=== PATIENT | male | born 1990 | race American Indian/Alaskan Native ===

== ENCOUNTER 2024-02-19 16:22 | Emergency (ER) | payer BC, SELFPAY ==
[2024-02-19 16:42] VITALS: BP 144/81; PULSE 80; RESP 18; TEMP 36.9; O2SAT 98
[2024-02-19 16:43] VITALS: BP 144/81; PULSE 80; RESP 18; TEMP 36.9; O2SAT 98
--- NOTE | 2024-02-19 16:53 | ED.GENADULT ---
HPI - General Adult General Chief complaint: Recheck/Abnormal Lab/Rx Stated complaint: elevated blood pressure Time Seen by Provider: 02/19/24 16:53 Source: patient Mode of arrival: ambulatory Limitations: no limitations History of Present Illness HPI narrative: 33-year-old male presents with complaint of elevated blood pressure. Asymptomatic. Patient reports that he was at his dentist's office for a dental cleaning and blood pressure was elevated. Remember systolic was 180s. States they let him relax and room and checked several times and still elevated. Patient currently does not have a primary care physician. All systems reviewed and negative except as noted above. Related Data Home Medications Medication Instructions Recorded Confirmed No Home Medications 02/19/24 02/19/24 Allergies Allergy/AdvReac Type Severity Reaction Status Date / Time No Known Allergies Allergy Verified 02/19/24 16:43 Review of Systems Review of Systems: CONSTITUTIONAL: Denies fever, chills, or sweats. EYES: Denies visual changes, redness, or discharge. ENT: Denies rhinorrhea, congestion, sore throat, or otalgia. CARDIOVASCULAR: Denies chest pain, palpitations, or edema. RESPIRATORY: Denies cough or dyspnea. GASTROINTESTINAL: Denies abdominal pain, nausea, vomiting, or diarrhea. GENITOURINARY: Denies dysuria or hematuria. SKIN: Denies rash or itching. MUSCULOSKELETAL: Denies back pain, joint pain, or myalgia. NEUROLOGIC: Denies headache, numbness, or weakness. PSYCHIATRIC: Denies anxiety or depression. All other systems reviewed are negative, except as documented in HPI. PMFSH Comments At time of signature, agree with nursing past medical, surgical, social and family history. There is no relevant family history pertinent to the presenting complaint. Exam Narrative: GENERAL: This is a well-nourished, well-developed patient, in no apparent distress. HEAD: normocephalic, atraumatic. EYES: PERRL. Sclera clear/white. Vision is grossly intact. EARS: External ears normal NOSE: External nose normal NECK: Neck supple, non-tender without lymphadenopathy, masses or thyromegaly. CARDIOVASCULAR: Regular rate and rhythm without murmurs, gallops, or rubs. RESPIRATORY: Clear to auscultation. Breath sounds equal bilaterally. No wheezes, rales, or rhonchi. SKIN: warm, Dry, intact with no suspicious lesions or rash, good texture and turgor. NEURO: awake, alert, and oriented to person, place and time. There were no obvious focal neurologic abnormalities. EXTREMITIES: No joint tenderness, effusion, or edema noted. Course Course Level of Care: Express Care Visit Vital Signs Vital signs: Vital Signs Temperature 36.9 C 02/19/24 16:42 Pulse Rate 80 02/19/24 16:42 Respiratory Rate 18 02/19/24 16:42 Blood Pressure 144/81 H 02/19/24 16:42 Pulse Oximetry 98 02/19/24 16:42 Oxygen Delivery Room Air 02/19/24 16:42 Temperature 36.9 C 02/19/24 16:43 Pulse Rate 80 02/19/24 16:43 Respiratory Rate 18 02/19/24 16:43 Blood Pressure 144/81 H 02/19/24 16:43 Pulse Oximetry 98 02/19/24 16:43 Oxygen Delivery Room Air 02/19/24 16:43 BP 142/94 manually checked. Medical Decision Making MDM Narrative Medical decision making narrative: Patient is asymptomatic. Came to urgent care after visit at dentist's office to have blood pressure recheck. Blood pressure at dental office was 180s systolic. Referred patient to primary care physician to recheck blood pressure in 1 week. We discussed lifestyle changes. Patient is aware of diagnosis, understands and agrees to treatment plan. Anticipatory guidance given. Patient agrees to follow-up as directed and is aware of reasons to seek care at the emergency department. Portions of this record may have been created with voice recognition software Vital Signs Vital Signs: Vital Signs Temperature 36.9 C 02/19/24 16:42 Pulse Rate 80
== END 2024-02-19 17:13 | disposition home or self-care (01) ==
PROVIDERS: Emergency Provider Nurse Practitioner Family
DX: R03.0 Elevated blood-pressure reading, without diagnosis of hypertension (principal)
CPT/HCPCS: 99202; G0463

== ENCOUNTER 2024-05-25 08:02 | Outpatient (CLI) | payer BC, SELFPAY ==
[2024-05-25 08:15] LABS: Hematocrit 39.8 % (42.0-52.0); Hemoglobin 13.5 g/dL (14.0-18.0); Mean Corpuscular HGB Conc 33.9 g/dl (32-36); Mean Corpuscular Hemoglobin 32.5 pg (26-34); Mean Corpuscular Volume 95.7 fl (80-100); Mean Platelet Volume 10.7 fl (7.4-10.4); Platelet Count Result 175 k/mm3 (150-375); Red Blood Count 4.16 M/mm3 (4.6-6.20); Red Cell Distribution Width 11.9 % (11.5-14.5); White Blood Count 6.5 K/mm3 (4.5-10.0)
[2024-05-25 08:56] LABS: Alanine Aminotransferase 24 U/L (6-50); Albumin Level 4.5 g/dL (3.5-5.1); Alkaline Phosphatase 68 U/L (38-126); Anion Gap 7 mmol/L (4-12); Aspartate Amino Transferase 32 U/L (17-59); Bilirubin,Total 0.5 mg/dL (0.2-1.3); Blood Urea Nitrogen 12 mg/dL (9-20); Calcium 9.3 mg/dL (8.4-10.2); Carbon Dioxide 25 mmol/L (22-30); Chloride 107 mmol/L (98-107); Cholesterol 160 mg/dL (0-200); Estimated Glomerular Filt Rate > 60; Glucose 90 mg/dL (65-110); HDL Direct 38 mg/dL; Sodium 139 mmol/L (137-145); Triglycerides 88 mg/dL (<150)
[2024-05-25 09:01] LABS: Hemoglobin A1C 4.4 % (<5.7)
[2024-05-25 09:07] LABS: LDL Cholesterol Direct 104 mg/dL
== END 2024-05-25 08:03 | disposition home or self-care (01) ==
LOC: ANHLAB 08:03
PROVIDERS: PCP Family Medicine; Visit Provider Family Medicine
DX: Z00.00 Encounter for general adult medical examination without abnormal findings (principal); E66.9 Obesity, unspecified
CPT/HCPCS: 36415; 80053; 80061; 83036; 85027

== ENCOUNTER 2024-07-04 07:08 | Outpatient (CLI) | payer BC, SELFPAY ==
[2024-07-04 08:00] LABS: Hematocrit 40.1 % (42.0-52.0); Hemoglobin 13.3 g/dL (14.0-18.0); Mean Corpuscular HGB Conc 33.2 g/dl (32-36); Mean Corpuscular Hemoglobin 32.4 pg (26-34); Mean Corpuscular Volume 97.6 fl (80-100); Mean Platelet Volume 11.4 fl (7.4-10.4); Platelet Count Result 167 k/mm3 (150-375); Red Blood Count 4.11 M/mm3 (4.6-6.20); Red Cell Distribution Width 11.9 % (11.5-14.5); White Blood Count 5.3 K/mm3 (4.5-10.0)
[2024-07-04 08:14] LABS: Iron 77 ug/dL (49-181)
[2024-07-04 08:23] LABS: Percent Iron Saturation 29 % (20-50)
== END 2024-07-04 07:09 | disposition home or self-care (01) ==
PROVIDERS: PCP Family Medicine; Visit Provider Family Medicine
DX: D64.9 Anemia, unspecified (principal)
CPT/HCPCS: 36415; 82607; 83540; 83550; 85027

== ENCOUNTER 2024-11-16 07:24 | Outpatient (CLI) | payer BC, SELFPAY ==
[2024-11-16 07:40] LABS: Basophils Absolute Auto 0.1 K/mm3 (0.0-0.1); Basophils Percent Auto 1.3 % (0.2-1.2); Eosinophils Absolute Auto 0.5 K/mm3 (0-0.3); Eosinophils Percent Auto 8.5 % (0-4.4); Hematocrit 40.8 % (42.0-52.0); Hemoglobin 13.8 g/dL (14.0-18.0); Immature Granulocyte Absolute 0.07 K/mm3 (0.00-0.031); Immature Granulocyte Percent A 1.1 % (0-0.5); Lymphocytes Absolute Auto 1.88 K/mm3 (0.9-3.2); Lymphocytes Percent Auto 29.5 % (18.3-44.2); Mean Corpuscular HGB Conc 33.8 g/dl (32-36); Mean Corpuscular Hemoglobin 32.7 pg (26-34); Mean Corpuscular Volume 96.7 fl (80-100); Mean Platelet Volume 10.6 fl (7.4-10.4); Monocytes Absolute Auto 0.6 K/mm3 (0.1-0.6); Neutrophils Absolute Auto 3.2 K/mm3 (1.3-6.7); Neutrophils Percent Auto 49.6 % (45.5-73.1); Platelet Count Result 174 k/mm3 (150-375); Red Blood Count 4.22 M/mm3 (4.6-6.20); Red Cell Distribution Width 11.6 % (11.5-14.5); White Blood Count 6.4 K/mm3 (4.5-10.0)
[2024-11-16 07:48] LABS: Alanine Aminotransferase 21 U/L (6-50); Albumin Level 4.3 g/dL (3.5-5.1); Alkaline Phosphatase 70 U/L (38-126); Anion Gap 3 mmol/L (4-12); Aspartate Amino Transferase 32 U/L (17-59); Bilirubin,Total 0.4 mg/dL (0.2-1.3); Blood Urea Nitrogen 10 mg/dL (9-20); Calcium 9.4 mg/dL (8.4-10.2); Carbon Dioxide 28 mmol/L (22-30); Chloride 107 mmol/L (98-107); Estimated Glomerular Filt Rate > 60; Glucose 92 mg/dL (65-110); Potassium 4.3 mmol/L (3.4-5.0); Sodium 138 mmol/L (137-145)
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
--- OUTSIDE RECORDS SUMMARY | 2024-11-23 03:49 | XMS_ITS | Encounter Summary ---
Author Organization [facility] Address [address] [place] [address]. [place], [place] [id number] [place] [address] Care Team Providers Care Twisting Press Operator Name Role Phone Unavailable Primary Care Provider Unavailabl e Encounter Details Date Type Department Care Team (Late Contact Info) Description 12/14/2017 Orders Only [facility] [address] [place], [place] [id number] Adela Suarez MD [address] [place], [place] [id number] Social History Tobacco Use Types Packs/Day Years Used Date Smoking Tobacco: Never Smokeless Tobacco: Never Alcohol Use Standard Drinks/Week Comments Yes 0 (1 standard drink = 0.6 oz pur e alcohol) sociallly Sex and Gender Information Value Date Recorded Sex Assigned at Not on file Legal Sex Male 10:18 AM ARMATURE REWINDER Gender Identity Not on file Sexual Orientation Not on file documented as of this encounter Plan of Treatment Upcoming Encounters Date Type Department Care Team (Late Contact Info) Description 05/22/2025 3:20 PM CDT Office Visit [facility] Family & Internal Medicine [facility] [id number] [place] [phone] Marilyn Stevens MD [address] [place] [address]. [address] [place] [address] documented as of this encounter Procedures Procedure Name Priority Date/Time Associated Diagnosis Comments PATHOLOGY Routine 12/14/2017 12:00 AM ARMATURE REWINDER documented in this encounter Results * Pathology (12/14/2017 12:00 AM ARMATURE REWINDER) COPATH REPORT ? [facility] ? Department of Pathology ? [address] [facility] [address] ? [place] ??[id number] ? [id number] ? Pathology Report ? Name: MARV CARRIZALES ? Specimen #: [id number] Age: 12 1990 (Age: 27) ?Location: [facility] Sex: M ? Procedure Date: 12/14/2017 Hospital #: [id number] ? Date Received: 12/14/2017 Date Reported: 12/15/2017 Provider: ADELA SUAREZ Gross Description: The specimen is received in formalin (placed in formalin at 08:50) labeled with the patient's name (Marv Carrizales), date, and bilateral tonsils (stitch on right). The specimen consists of two tonsils, the right marked with a suture per the accompanying path requisition and specimen container. The right tonsil weighs 6.0 gm and measures 3.3 x 2.4 x 1.6 cm. ??The mucosal surface has a glistening, cerebriform, pink-luke appearance. The margin is inked. ??Cut sections have a convoluted, lockhart-pink appearance. The left tonsil weighs 6.0 gm and measures 3.2 x 2.5 x 1.2 cm. The mucosal surface has a dull, luke-pink cerebriform appearance, and has a minimal amount of hemorrhage noted in the crypts. Cut sections are convoluted, lockhart-red and unremarkable. Triage Registered Nurse sections are submitted as follows: 1 - right tonsil 2 - left tonsil Microscopic Description: Microscopic examination substantiates the above captioned diagnosis. FINAL PATHOLOGIC DIAGNOSIS: TONSILS, RIGHT AND LEFT, TONSILLECTOMY: ? - ? FOLLICULAR LYMPHOID HYPERPLASIA ? - ? ACUTE CRYPTITIS ? - ? ACTINOMYCES COLONIES IDENTIFIED ? - ? NO EVIDENCE OF MALIGNANCY ? FREDDY SCHUSTER ??Pathologist /12/15/2017 Electronically Signed Out ? [facility] 12/14/2017 12/14/2017 11: 02 AM ARMATURE REWINDER Comment:TONSIL, BILATERAL us Adela Suarez MD PATHOLOGY/CYTOLOGY ORDERABLES Final Result [facility] [address] [facility] [place] [address], documented in this encounter Visit Diagnoses Not on filedocumented in this encounter
--- OUTSIDE RECORDS SUMMARY | 2024-11-23 03:49 | XMS_ITS | Encounter Summary ---
Author Organization [facility] Address [address] [place] [address]. [place], [place] [id number] [place] [id number] Care Team Providers Care Manager Fire Name Role Phone Unavailable Primary Care Provider Unavailabl e Encounter Details Date Type Department Care Team (Latest Contact Info) Description 12/14/2017 6:49 AM SOLAR PROJECT COORDINATION SPECIALIST - 12/14/2017 1:25 PM SOLAR PROJECT COORDINATION SPECIALIST Hospital Encounter [facility] [place], [place] [id number] Adela Suarez MD [address] [place] [address] Discharge Disposition: Home or Self Care (Routine Discharge) Social History Tobacco Use Types Packs/Day Years Used Date Smoking Tobacco: Never Smokeless Tobacco: Never Alcohol Use Standard Drinks/Week Comments Yes 0 (1 standard drink = 0.6 oz pur e alcohol) sociallly Sex and Gender Information Value Date Recorded Sex Assigned at Not on file Legal Sex Male 10:18 AM SOLAR PROJECT COORDINATION SPECIALIST Gender Identity Not on file Sexual Orientation Not on file documented as of this encounter Last Filed Vital Signs Vital Sign Reading Time Taken Comments Blood Pressure 139/97 12/14/2017 1:20 PM SOLAR PROJECT COORDINATION SPECIALIST Pulse 102 12/14/2017 1:20 PM SOLAR PROJECT COORDINATION SPECIALIST Temperature 36.8 ??C (98.2 ??F) 12/14/2017 1:20 PM CS T Respiratory Rate 20 12/14/2017 1:20 PM SOLAR PROJECT COORDINATION SPECIALIST Oxygen Saturation 92% 12/14/2017 1:20 PM SOLAR PROJECT COORDINATION SPECIALIST 92-93% RA Inhaled Oxygen Concentration - - Weight 159.7 kg (352 lb 1.2 oz) 12/14/2017 7:20 AM SOLAR PROJECT COORDINATION SPECIALIST Height 185.4 cm (6' 1 ) 12/14/2017 7:20 AM SOLAR PROJECT COORDINATION SPECIALIST Body Mass Index 46.45 12/14/2017 7:20 AM SOLAR PROJECT COORDINATION SPECIALIST documented in this encounter Discharge Instructions * Discharge Instructions* Dejah Harris RN - 12/14/2017 11:36 AM SOLAR PROJECT COORDINATION SPECIALIST Tonsillectomy Diet for 2 weeks.. Soft diet. No vigorous activity for 2 weeks NO DRIVING FOR 24 HRS NO ALCOHOL, NO OPERATING MACHINERY, NO MAJOR DECISIONS FOR 24 HOURS TAKE PAIN MEDS WITH FOOD USE STOOL SOFTENER WHILE ON NARCOTICS AVOID GREASY, FRIED OR SPICY FOODS MUST HAVE A RESPONSIBLE ADULT STAY WITH YOU FOR THE REST OF TODAY AND TONIGHT IF YOU HAVE ANY EMERGENT CONDITIONS SUCH SHORTNESS OF BREATH OR CHEST PAIN CALL 911 [facility] SUAREZ EXCHANGE # NO SHARP FOODS SUCH CHIPS/CORN FLAKES EAT COOL, SOFT FOODS SUCH SHERBET, POPCICLES, SOUPS, MASHED POTATOES, RICE, JELLO AND PUDDINGS NO STRAWS WATCH FOR BLEEDING R PROJECT COORDINATION SPECIALIST * Attachments The following attachments cannot be sent through Care Everywhere. * TONSILLECTOMY DISCHARGE INSTRUCTIONS (WOLOF) documented in this encounter Medications at Time of Discharge hydrocodone-aceta minophen 7.5-325 MG/15ML Solution solution Take 15 mLs by mouth every 4 (four) hours as needed for Pain. 500 mL 12/14/2017 amoxicillin 250 MG/5ML suspension Take 10 mLs (500 mg total) by mouth 3 (three) times daily for 5 days. 150 mL 12/14/2017 12/19/2017 documented as of this encounter H&P Notes * Adela Suarez MD - 12/14/2017 7:15 AM CST HISTORY AND PHYSICAL INTERVAL NOTE: I have reviewed Sangita Carrizales History & Physical which was performed within the past 30 days. After examining Sangita Carrizales, no change has occurred in the patient's condition since the H&P was completed. Informed Consent Discussion: Risks, benefits, alternatives as well as the consequences of not performing the surgery/procedure were discussed with the patient and/or family/personal senior patient account representative. Questions were answered and the patient/family/personal senior patient account representative verbalized understanding and desires to proceed. R PROJECT COORDINATION SPECIALIST Source Note - Adela Suarez MD - 12/12/2017 8:44 AM SOLAR PROJECT COORDINATION SPECIALIST Current / Administered Medications - Reviewed LN Allergies - Reviewed LN Pharmacies: None Selected No Known Medications No Known Allergies Problem List - Reviewed LN Medical History - Reviewed LN No Known Problem List Leg Cramps Previous Diagnosis - last 3 visits No Previous Visits Family Medical History - Reviewed LN Social History - Reviewed LN High Blood Pressure Ear Infections Headaches Allergies Hearing Loss Breast Cancer Diabetes Migraine Heart Attack Around Smoke: Not around smoke Alcohol: Drinks Alcohol Illegal Drug Use: No illegal drug use Diet: Eats Snacks Smoking Status: Never smoker Exercise: Doesn't Exercise Caffeine Intake: Drinks Caffeine Occupation: No Occupation Subjective This is a patient with a history constant difficulty breathing through the nose. He has dysphagia of more solid food and a sense of fullness in the throat. His voice has been muffled as if he has marbles in the throat for many years and getting progressively worse. When he has an upper respiratory illness, he gets the sense of airway obstruction. In addition, he has snoring, restless sleep,non-refreshing sleep. Chief Complaint Patient is here today for a sleep consult. Quality:: pt here today for a sleep consult Timing (Onset):: months Location:: head Duration:: constant Associated Signs and Symptoms:: snoring, fatigue Severity:: 5/10 Modifying Factors:: none Context:: none Review of Systems Ears: The System was normal Sleep: Quits Breathing, No Nightmares, Patient noted Snoring, No Insomnia, No daytime fatigue. Mouth/Throat: The System was normal Lymphatic: The System was normal Neck: The System was normal Allergy/Immune System: The System was normal Nose: The System was normal Cardiovascular/Heart: The System was normal Eyes: The System was normal Respiratory/Lung Disease: The System was normal GI/Stomach: The System was normal General/Constitutional: The System was normal Endocrine: The System was normal Psychiatric: The System was normal Neurological: The System was normal Kidney/Urological: The System was normal Skin: The System was normal Musculoskeletal: No Pain, No Muscle Aches, No Stiffness, No Joint Aches, No restless legs. Leg cramps. Heart: RRR Objective Physical Exam General Appearance: The patient appears active and healthy with no apparent physical problems. Patient appears well developed, well oriented, and well nourished. obese Communication: hot potato voice Face and Head: Normocephalic, atraumatic. No rashes or lesions. Eyes intact. Pupils are equal, round, and reactive to light. Clear sclera. Normal external ear appearance. Normal conchae appearance. External Nasal Appearance: Dorsum straight and symmetrical. No polyps or lesions. Healthy pink mucosa. Turbinates display abnormalities. Minimal, clear discharge. Septum midline. Valves / nares are open. Palpation of Sinuses: No tenderness noted. Lips and Teeth: No lesions or caries. No tenderness noted. Good dentition. Oral Cavity: Oral cavity normal, pink mucous membranes. Tongue is without lesions. Floor of mouth is without lesions. 4+ tonsils meeting in midline Oropharynx: Oropharynx clear. Salivary Glands: No tenderness or masses. Neck: Neck is supple without masses. No palpable neck nodes or thyroid masses. Neurological: No tremors noted. Normal strength and gait. Cranial nerves intact, symmetrical. Orders [id number] - Fiberoptic Laryngoscopy, 1 unit(s), Results: Using a 50-50 solution of lidocaine and neosynephrine nebulized topically into the nose, I performed a fiberoptic flexible nasolaryngoscopy. A thorough examination of the nasal cavity, nasopharynx, oropharynx , hypopharynx, base of tongue and larynx was performed. Findings: Base of Tongue: normal Hypopharynx: tonsils touch in the midline. Larynx: normal. Adenoids 3+ Assessment Diagnosis J35.3 Hypertrophy of tonsils with hypertrophy of adenoids R06.83 Snoring R13.10 Dysphagia, unspecified Plan This patient has 4+ tonsillar hypertrophy with the tonsils touching in the midline at rest without an infection. He also has adenoid hypertrophy. These are causing near total nasal obstruction, hot potato voice, dysphagia of solid foods and the sense of airway obstruction with upper respiratory illnesses and even some with sleep. I have recommended tonsillectomy and adenoidectomy given the massive size of the tonsils and his persistent symptoms. The risks and benefits including bleeding, infection, velopharyngeal insufficiency, nasopharyngeal stenosis, dental injury, numbness of the tongue and oral cavity, need for subsequent surgical intervention and control of hemorrhage, dehydration, poss ible need for IV therapy, anesthetic complications, and all of the potential complications were discussed with the patient and family. R PROJECT COORDINATION SPECIALIST * Adela Suarez MD - 12/12/2017 8:44 AM CST Current / Administered Medications - Reviewed LN Allergies - Reviewed LN Pharmacies: None Selected No Known Medications No Known Allergies Problem List - Reviewed LN Medical History - Reviewed LN No Known Problem List Leg Cramps Previous Diagnosis - last 3 visits No Previous Visits Family Medical History - Reviewed LN Social History - Reviewed LN High Blood Pressure Ear Infections Headaches Allergies Hearing Loss Breast Cancer Diabetes Migraine Heart Attack Around Smoke: Not around smoke Alcohol: Drinks Alcohol Illegal Drug Use: No illegal drug use Diet: Eats Snacks Smoking Status: Never smoker Exercise: Doesn't Exercise Caffeine Intake: Drinks Caffeine Occupation: No Occupation Subjective This is a patient with a history constant difficulty breathing through the nose. He has dysphagia of more solid food and a sense of fullness in the throat. His voice has been muffled as if he has marbles in the throat for many years and getting progressively worse. When he has an upper respiratory illness, he gets the sense of airway obstruction. In addition, he has snoring, restless sleep,non-refreshing sleep. Chief Complaint Patient is here today for a sleep consult. Quality:: pt here today for a sleep consult Timing (Onset):: months Location:: head Duration:: constant Associated Signs and Symptoms:: snoring, fatigue Severity:: 5/10 Modifying Factors:: none Context:: none Review of Systems Ears: The System was normal Sleep: Quits Breathing, No Nightmares, Patient noted Snoring, No Insomnia, No daytime fatigue. Mouth/Throat: The System was normal Lymphatic: The System was normal Neck: The System was normal Allergy/Immune System: The System was normal Nose: The System was normal Cardiovascular/Heart: The System was normal Eyes: The System was normal Respiratory/Lung Disease: The System was normal GI/Stomach: The System was normal General/Constitutional: The System was normal Endocrine: The System was normal Psychiatric: The System was normal Neurological: The System was normal Kidney/Urological: The System was normal Skin: The System was normal Musculoskeletal: No Pain, No Muscle Aches, No Stiffness, No Joint Aches, No restless legs. Leg cramps. Heart: RRR Objective Physical Exam General Appearance: The patient appears active and healthy with no apparent physical problems. Patient appears well developed, well oriented, and well nourished. obese Communication: hot potato voice Face and Head: Normocephalic, atraumatic. No rashes or lesions. Eyes intact. Pupils are equal, round, and reactive to light. Clear sclera. Normal external ear appearance. Normal conchae appearance. External Nasal Appearance: Dorsum straight and symmetrical. No polyps or lesions. Healthy pink mucosa. Turbinates display abnormalities. Minimal, clear discharge. Septum midline. Valves / nares are open. Palpation of Sinuses: No tenderness noted. Lips and Teeth: No lesions or caries. No tenderness noted. Good dentition. Oral Cavity: Oral cavity normal, pink mucous membranes. Tongue is without lesions. Floor of mouth is without lesions. 4+ tonsils meeting in midline Oropharynx: Oropharynx clear. Salivary Glands: No tenderness or masses. Neck: Neck is supple without masses. No palpable neck nodes or thyroid masses. Neurological: No tremors noted. Normal strength and gait. Cranial nerves intact, symmetrical. Orders [id number] - Fiberoptic Laryngoscopy, 1 unit(s), Results: Using a 50-50 solution of lidocaine and neosynephrine nebulized topically into the nose, I performed a fiberoptic flexible nasolaryngoscopy. A thorough examination of the nasal cavity, nasopharynx, oropharynx , hypopharynx, base of tongue and larynx was performed. Findings: Base of Tongue: normal Hypopharynx: tonsils touch in the midline. Larynx: normal. Adenoids 3+ Assessment Diagnosis J35.3 Hypertrophy of tonsils with hypertrophy of adenoids R06.83 Snoring R13.10 Dysphagia, unspecified Plan This patient has 4+ tonsillar hypertrophy with the tonsils touching in the midline at rest without an infection. He also has adenoid hypertrophy. These are causing near total nasal obstruction, hot potato voice, dysphagia of solid foods and the sense of airway obstruction with upper respiratory illnesses and even some with sleep. I have recommended tonsillectomy and adenoidectomy given the massive size of the tonsils and his persistent symptoms. The risks and benefits including bleeding, infection, velopharyngeal insufficiency, nasopharyngeal stenosis, dental injury, numbness of the tongue and oral cavity, need for subsequent surgical intervention and control of hemorrhage, dehydration, poss ible need for IV therapy, anesthetic complications, and all of the potential complications were discussed with the patient and family. R PROJECT COORDINATION SPECIALIST documented in this encounter OR Notes * Op Note - Adela Suarez MD - 12/14/2017 9:01 AM CST Procedure Note Indications: The patient underwent surgery on 12/14/2017 for chronic tonsillitis and adenotonsillar hypertrophy. Procedure: Procedure(s): TONSILLECTOMY AND ADENOIDECTOMY BILATERAL Procedure Details The patient was taken to the operating room and placed under a general endotracheal anesthesia. Once under adequate depth of anesthetic, the patient was placed supine. The operating table was turned 90 degrees and then the patient was prepped and draped in the usual fashion for oropharyngeal surgery. A McIvor mouth gag was inserted and opened for visualization of the oropharynx. Examination foundno submucosal cleft, no bifid uvula and no unusual pulsation of the tonsil bed. The right tonsil was grasped with a curved allis and retracted medially. The Bovie on a setting of 15 W was used to make an anterior pillar incision and then dissect between the tonsil capsule and tonsil bed to remove th e right tonsil completely. Focal bleeding was controlled with focal use of the suction cautery. Once the right tonsil was removed, an identical procedure was used on the left. Both tonsils were placed in formalin and sent to pathology. A red rubber catheter was inserted in the nose and withdrawn through the mouth for elevation of the soft palate. The adenoids were examined with a laryngeal mirror. The adenoids were removed using suction cautery ablation. With the cautery on a setting of 40W, the adenoids were cauterized, liquefied and suctioned from the oropharynx. Care was taken to avoidinjuring the Eustachian tubes and to avoid burning deeper than the adenoid bed. The oropharynx was re-examined for bleeding. The mouth gag was released for 1 full minute and then removed. The patient was turned back to anesthesia, allowed to emerge from the anesthetic. Extubation was accomplished in the OR and the patient transferred to PACU without complication. Findings: 4+ tonsils. 4+ adenoids Complications: None Estimated Blood Loss: 20cc Specimens: ID Type Source Tests Collected by Time Destination A : Bilateral Tonsils (Stitch on right tonsil) TISSUE TONSIL, LEFT PATHOLOGY Adela Suarez MD 12/14/2017 0850 Disposition: PACU Condition: stable ADELA SUAREZ MD R PROJECT COORDINATION SPECIALIST * OR PreOp - Aundrea Hope NP - 12/07/2017 9:03 AM CST Chart reviewed. High MCKAYLA Risk. Denies cardiac history, denies SOB/CP R PROJECT COORDINATION SPECIALIST * OR PreOp - Denise Blackman RN - 12/06/2017 3:53 PM CST Patient can climb 2 flights of stairs without chest pain but may be sob. Exercise tolerance the same as it was 6 months ago. Denies heart testing pcp- none Cardio-none States he went to dr. suarez - thought he has sleep apnea- but dr wanted to remove adnoids and tonsils then will have sleep study done after R PROJECT COORDINATION SPECIALIST documented in this encounter Plan of Treatment Upcoming Encounters Date Type Department Care Team (Late st Contact Info) Description 05/22/2025 3:20 PM CDT Office Visit [facility] Family [facility] Internal Medicine - [address] [phone] Marilyn Stevens MD [address] [place] [address]. [address] [place] [address] documented as of this encounter Procedures Procedure Name Priority Date/Time Associated Diagnosis Comments TONSILLECTOMY AND ADENOIDECTOMY 12/14/2017 8:03 AM SOLAR PROJECT COORDINATION SPECIALIST HYPERTROPHY OF TONSILS AND ADENOIDS Case Notes BABITA BY FAX 1-3-18 ML *PHONE TEST* documented in this encounter Visit Diagnoses Not on filedocumented in this encounter Administered Medications Inactive Administered Medications - up to 3 most recent administrations Medication Order MAR Action Action Date Dose Rate Site hydrocodone-acetaminophen (HYCET) 7.5-325 MG/15ML solution 15 mL 15 mL, Oral, PRN, Moderate pain (Scale 4 - 7), 1 dose, Starting on Lanie 12/14/17 at 0926, Until Lanie 12/14/17 at 0955, Maximum dose of acetaminophen is 4000 mg from all sources in 24 hours., PACU Given 12/14/2017 9:55 AM SOLAR PROJECT COORDINATION SPECIALIST 15 mLs lactated ringers infusion at 10 mL/hr, Intravenous, Continuous, Starting on Lanie 12/14/17 at 0815, Until 12/16/17 at 1419 New Bag 12/14/2017 7:48 AM SOLAR PROJECT COORDINATION SPECIALIST 10 mL/hr Ot her lactated ringers infusion at 10 mL/hr, Intravenous, Continuous, Starting on Lanie 12/14/17 at 0845, Until 12/16/17 at 1419, Not to be given to patients with end stage renal disease or dialysis. Infuse at TKO rate, Pre-Op New Bag 12/14/2017 8:19 AM SOLAR PROJECT COORDINATION SPECIALIST documented in this encounter Active and Recently Administered Medications Times are shown in SOLAR PROJECT COORDINATION SPECIALIST. Continuous Medication Order 12/12/2017 12/13/2017 12/14/2017 lactated ringers infusion at 10 mL/hr, Intravenous, Continuous, Starting on Lanie 12/14/17 at 0815, Until 12/16/17 at 1419 0748 (New Bag - Prov ider: Deepali Franco RN)0841 (JAN Hold - Provider: User InsideView - Reason: Unreviewed Transfer Orders)0925 (JAN Unhold - Provider: User Epic) lactated ringers infusion at 10 mL/hr, Intravenous, Continuous, Starting on Lanie 12/14/17 at 0845, Until 12/16/17 at 1419, Not to be given to patients with end stage renal disease or dialysis. Infuse at TKO rate, Pre-Op 0819 (New Bag - Prov ider: Ankita Toro CRNA)0928 (Infusion Stop Time - Provider: Ankita Toro CRNA) lactated ringers infusion at 100 mL/hr, Intravenous, Continuous, Starting on Lanie 12/14/17 at 0945, Until 12/16/17 at 1419, PACU 0945 (Canceled Entry - Provider: Automatic Discharge Provider - Comment: Automatically canceled at discontinue of medication order) PRN Medication Order 12/12/2017 12/13/2017 12/14/2017 hydrocodone-acetaminophen (HYCET) 7.5-325 MG/15ML solution 10 mL 10 mL, Oral, Every 4 hours PRN, Moderate pain (Scale 4 - 7), Starting on Lanie 12/14/17 at 1130, Until 12/16/17 at 1419, Maximum dose of acetaminophen is 4000 mg from all sources in 24 hours., Post-Op hydrocodone-acetaminophen (HYCET) 7.5-325 MG/15ML solution 15 mL (COMPLETED) 15 mL, Oral, PRN, Moderate pain (Scale 4 - 7), 1 dose, Starting on Lanie 12/14/17 at 0926, Until Lanie 12/14/17 at 0955, Maximum dose of acetaminophen is 4000 mg from all sources in 24 hours., PACU 0955 (Given - Provid er: Whit Mcgowan RN) sodium chloride 0.9 % irrigation (CANCELED) Continuous PRN, Starting on Lanie 12/14/17 at 0913, Until Lanie 18 at 0923, Intra-Op 0913 (New Bag - Prov ider: Adela Suarez MD) documented in this encounter
--- OUTSIDE RECORDS SUMMARY | 2024-11-23 03:49 | XMS_ITS | Encounter Summary ---
Author Organization [facility] Address [address] [place] [address]. [place], [place] [address] [place] [address] Care Team Providers Care Food Service Attendant Name Role Phone Unavailable Primary Care Provider Unavailabl e Encounter Details Date Type Department Care Team (Late st Contact Info) Description 12/14/2017 8:40 AM CRYSTALIZER - 12/14/2017 9:52 AM CRYSTALIZER Surgery [facility] [place], [place] [address] Adela Suarez MD [address] [place], [place] [address] TONSILLECTOMY AND ADENOIDECTOMY BILATERAL Surgery Details Date/Time Status Location OR Service Patient Class Case Class Case Type Trauma Case? 12/14/2017 8:40 AM Posted [facility]ANCY OR OR 1 ENT Short Stay/Outpati ent Surgery E - Elective No Panel 1 Procedure LRB Anes Op Region Wound Class Comments TONSILLECTOMY AND ADENOIDECTOMY BILATERAL Bilateral General Throat Clean Contaminate d Surgeon Surgeon Role Service Panel Adela Suarez MD Primary ENT 1 Case Notes BABITA BY FAX 11-29-17 ML *PHONE TEST* documented in this encounter Social History Tobacco Use Types Packs/Day Years Used Date Smoking Tobacco: Never Smokeless Tobacco: Never Alcohol Use Standard Drinks/Week Comments Yes 0 (1 standard drink = 0.6 oz pur e alcohol) sociallly Sex and Gender Information Value Date Recorded Sex Assigned at Not on file Legal Sex Male 10:18 AM CRYSTALIZER Gender Identity Not on file Sexual Orientation Not on file documented as of this encounter Last Filed Vital Signs Vital Sign Reading Time Taken Comments Blood Pressure 139/97 12/14/2017 1:20 PM CRYSTALIZER Pulse 102 12/14/2017 1:20 PM CRYSTALIZER Temperature 36.8 ??C (98.2 ??F) 12/14/2017 1:20 PM CS T Respiratory Rate 20 12/14/2017 1:20 PM CRYSTALIZER Oxygen Saturation 92% 12/14/2017 1:20 PM CRYSTALIZER 92-93% RA Inhaled Oxygen Concentration - - Weight 159.7 kg (352 lb 1.2 oz) 12/14/2017 7:20 AM CRYSTALIZER Height 185.4 cm (6' 1 ) 12/14/2017 7:20 AM CRYSTALIZER Body Mass Index 46.45 12/14/2017 7:20 AM CRYSTALIZER documented in this encounter Discharge Instructions * Discharge Instructions* Dejah Harris RN - 12/14/2017 11:36 AM CRYSTALIZER Tonsillectomy Diet for 2 weeks.. Soft diet. [...] CHEST PAIN [facility] EX[facility]ANGE # NO SHARP FOODS SUCH CHIPS/CORN FLAKES EAT COOL, SOFT FOODS SUCH SHERBET, POPCICLES, SOUPS, MASHED POTATOES, RICE, JELLO AND PUDDINGS NO STRAWS WATCH FOR BLEEDING TALIZER * Attachments The following attachments cannot be sent through Care Everywhere. * TONSILLECTOMY DISCHARGE INSTRUCTIONS (PASHTO) documented in this encounter Medications at Time [...] were discussed with the patient and/or family/personal training representative. Questions were answered and the patient/family/personal training representative verbalized understanding and desires to proceed. TALIZER Source Note - Adela Suarez MD - 12/12/2017 8:44 AM CRYSTALIZER Current / Administered Medications - Reviewed LN [...] and gait. Cranial nerves intact, symmetrical. Orders [id number] - Fiberoptic Laryngoscopy, 1 unit(s), Results: Using [...] were discussed with the patient and family. TALIZER * Adela Suarez MD - 12/12/2017 8:44 [...] and gait. Cranial nerves intact, symmetrical. Orders [id number] - Fiberoptic Laryngoscopy, 1 unit(s), Results: Using [...] were discussed with the patient and family. TALIZER documented in this encounter OR Notes * [...] right tonsil) TISSUE TONSIL, LEFT PATHOLOGY Adela Saurez MD 12/14/2017 0850 Disposition: PACU Condition: stable ADELA SUAREZ MD TALIZER * OR PreOp - Aundrea Hope NP - 12/07/2017 9:03 AM CST Chart reviewed. High MCKAYLA Risk. Denies cardiac history, denies SOB/CP TALIZER * OR PreOp - Denise Blackman RN [...] then will have sleep study done after TALIZER documented in this encounter Plan of Treatment Upcoming Encounters Date Type Department Care Team (Late st Contact Info) Description 05/22/2025 3:20 PM CDT Office Visit [facility] Family & Internal Medicine - [address] [address] [place] [address] [facility]. [address] [place] [address] documented as of this encounter Procedures Procedure Name Priority Date/Time Associated Diagnosis Comments TONSILLECTOMY AND ADENOIDECTOMY 12/14/2017 8:03 AM CRYSTALIZER HYPERTROPHY OF TONSILS AND ADENOIDS Case Notes BABITA BY FAX 13-18 ML *PHONE TEST* documented in this encounter [...] 24 hours., PACU Given 12/14/2017 9:55 AM CRYSTALIZER 15 mLs lactated ringers infusion at 10 mL/hr, Intravenous, Continuous, Starting on Lanie 12/14/17 at 0815, Until 12/16/17 at 1419 New Bag 12/14/2017 7:48 AM CRYSTALIZER 10 mL/hr Other lactated ringers infusion at 10 mL/hr, Intravenous, Continuous, Starting on Lanie 12/14/17 at 0845, Until 12/16/17 at 1419, Not to be given to patients with end stage renal disease or dialysis. Infuse at TKO rate, Pre-Op New Bag 12/14/2017 8:19 AM CRYSTALIZER sodium chloride 0.9 % irrigation Continuous PRN, Starting on Lanie 12/14/17 at 0913, Until Lanie 12/14/17 at 0923, Intra-Op New Bag 12/14/2017 9:13 AM CRYSTALIZER 120 mLs Throat documented in this encounter Active and Recently Administered Medications Times are shown in CRYSTALIZER. Continuous Medication Order 12/12/2017 12/13/2017 12/14/2017 lactated ringers infusion at 10 mL/hr, Intravenous, Continuous, Starting on Lanie 12/14/17 at 0815, Until 12/16/17 at 1419 0748 (New Bag - Prov ider: Deepali Franco RN)0841 (JAN Hold - Provider: User Epic - Reason: Unreviewed Transfer Orders)0925 (JAN Unhold - Provider: User Epic) lactated ringers infusion at 10 mL/hr, Intravenous, Continuous, Starting on Lanie 18 at 0845, Until 12/16/17 at 1419, Not to be given to patients with end stage renal disease or dialysis. Infuse at TKO rate, Pre-Op 0819 (New Bag - Prov ider: Ankita Toro CRNA)0928 (Infusion Stop Time - Provider: Ankita Toro CRNA) lactated ringers infusion at 100 mL/hr, Intravenous, Continuous, Starting on Lanie 18 at 0945, Until 12/16/17 at 1419, PACU [...] - 7), 1 dose, Starting on Lanie 18 at 0926, Until Lanie 118 at 0955, Maximum dose of acetaminophen is 4000 mg from all sources in 24 hours., PACU 0955 (Given - Provid er: Whit Mcgowan RN) sodium chloride 0.9 % irrigation (CANCELED) Continuous PRN, Starting on Lanie 12/14/17 at 0913, Until Lanie 118 at 0923, Intra-Op 0913 (New Bag - Prov ider: Adela Suarez MD) documented in this encounter
--- OUTSIDE RECORDS SUMMARY | 2024-11-23 03:49 | XMS_ITS | Clinical Summary ---
Author Organization [facility] Address [address] [facility] [place] [address] Care Team Providers Care Telephoto Installer Name Role Phone Unavailable Primary Care Provider Unavailabl e Source Comments [facility], [facility],non-owned Affiliates and Associated Physician Practices is amultiple site organization consisting of ambulatory clinics and hospital sitesin [place], [place], [place] and [place]. This disclosure is being madepursuant to the Care Everywhere program and may not contain all information available regarding this patient. Last updated 18.[facility] Allergies No known active allergies Medications * Be aware that medications may not be up to date on this document. Alwaysverify current medications with the patient. Medication Sig Dispensed Refills Start Date End Date Status predniSONE (DELTASONE) 20 MG tabletIndications:Acut e sinusitis, recurrence not specified, unspecified location Take 1 tablet by mouth 2 times daily 14 tablet 12/25/2018 Active albuterol HFA (VENTOLIN HFA) 108 (90 BASE) MCG/ACT inhalerIndications:Bro nchitis Inhale 2 puffs by mouth every 6 hours as needed 1 Inhaler 5 12/25/2018 Active Family History Medical History Relation Name Comments Asthma Mother Cancer - Breast Mother Thyroid Disease Mother Autoimmune Disease Neg Hx Bipolar Disorder Neg Hx Cancer - Colon Neg Hx Cancer - Other Neg Hx Cancer - Ovarian Neg Hx Cancer - Pancreatic Neg Hx Cancer - Prostate Neg Hx Depression Neg Hx Eczema Neg Hx Hypertension Neg Hx Migraine Neg Hx Osteoporosis Neg Hx Seizures Neg Hx Sudd. <30 Neg Hx Ulcerative Colitis Neg Hx Relation Name Status Comments Mother Alive Social History Tobacco Use Types Packs/Day Years Used Date Smoking Tobacco: Never Smokeless Tobacco: Never Tobacco Cessation:Counseling Given: No Alcohol Use Standard Drinks/Week Comments No 0 (1 standard drink = 0.6 oz pur e alcohol) Sex and Gender Information Value Date Recorded Sex Assigned at Not on file Gender Identity Not on file Sexual Orientation Not on file Last Filed Vital Signs Vital Sign Reading Time Taken Comments Blood Pressure 124/80 12/25/2018 4:31 PM EXPENSE CLERK Pulse 88 12/25/2018 4:31 PM EXPENSE CLERK Temperature 36.5 ??C (97.7 ??F) 12/25/2018 4:31 PM CS T Respiratory Rate 20 12/25/2018 4:31 PM EXPENSE CLERK Oxygen Saturation 97% 12/25/2018 4:31 PM EXPENSE CLERK Inhaled Oxygen Concentration - - Weight 140.6 kg (310 lb) 12/25/2018 4:31 PM EXPENSE CLERK Height 185.4 cm (6' 1 ) 12/25/2018 4:31 PM EXPENSE CLERK Body Mass Index 40.9 12/25/2018 4:31 PM EXPENSE CLERK Plan of Treatment Health Maintenance Due Date Last Done Comments HIV SCREENING 2004 HEPATITIS C SCREENING 11/08/2007 DTAP/TDAP/TD VACCINES (1 - Tdap) 2008 HEPATITIS B VACCINE (1 of 3 - 19+ 3-dose series) 2008 DEPRESSION SCREENING 11/27/2023 COVID-19 VACCINE (1 - 2023-2 5 season) 2024 INFLUENZA VACCINE (#1) 2024 ZOSTER VACCINE (1 of 2) 2039 HIB VACCINE Aged Out No longer eligi ble based on patient's age to complete this topic HPV VACCINE Aged Out No longer eligi ble based on patient's age to complete this topic MENINGOCOCCAL VACCINE Aged Out No karie laya eligible based on patient's age to complete this topic PNEUMOCOCCAL VACCINE Aged Out No long er eligible based on patient's age to complete this topic
--- OUTSIDE RECORDS SUMMARY | 2024-11-23 03:49 | XMS_ITS | Encounter Summary ---
Author Organization [facility] Address [address] [place] [address]. [place] [address] [place] [address] Care Team Providers Care Sales Representative [employer] Name Role Phone Unavailable Primary Care Provider Unavailabl e Encounter Details Date Type Department Care Team (Late st Contact Info) Description 12/14/2017 8:19 AM ROPER OPERATOR Anesthesia Event [facility] [address] Mamta Montalvo MD [address] [facility] [address] [address] Aundrea Hope NP Anesthesia Record Procedure Summary Procedure Name Responsible Anesthesiologist Anesthesia Start Time Anesthesia Stop Time TONSILLECTOMY AND ADENOIDECTOMY BILATERAL (Bilateral: Throat) Mamta Martin MD 12/14/17 0819 12/14/17 0928 Events Date Time Event Comment 12/14/2017 0710 AN ORTHOTIC/PROSTHETIC CLINICIAN Prepped [id number] AN Anesthesia Prepped 0819 An Start Patient ID and consent checked and patient reassessed. 0819 An Start Data 0822 Preoxygenation 0825 An Induction 0828 An Intubation 0834 Anesthesia Ready 0907 An Emergence 0915 An Extubation 0922 an stop data 0928 Post Anesthetic Care Handoff I completed my handoff to the receiving nurse during which we: 1. Identified the patient 2. Identified the responsible provider 3. Reviewed the pertinent medical history 4. Discussed the surgical course 5. Reviewed intra-op anesthesia management and issues during anesthesia 6. Set expectations for post-procedure period 7. Allowed opportunity for questions and acknowledgement of understanding. 0928 An Stop Meds Name Total midazolam 2 mg/2 mL injection 2 mg fentaNYL (SUBLIMAZE) 250 mcg/5 mL inject ion 100 mcg lidocaine (PF) (XYLOCAINE) 2% injection 100 mg propofol (DIPRIVAN) 200 mg/20 mL injecti on 300 mg succinylcholine (ANECTINE) 20 mg/mL inje ction 160 mg ondansetron (ZOFRAN) 4 mg/2 mL injection 4 mg rocuronium (ZEMURON) 50 mg/5 mL injectio n 30 mg dexamethasone (DECADRON) injection 10 mg sugammadex (BRIDION) 500 mg/5 mL injecti on 480 mg lactated ringers infusion 700 mL * Agents Name O2 N2O Air Inspired Sevoflurane Sevoflurane * Blood No blood administrations on file. Lines, Drains, and Airways Type Details Placement Removal Peripheral IV Placement Date: 11/27 07/14; Placement Time: 0740; Placed Outside of This Facility?: No; Size: 18 G; Orientation: Right; Location: Hand; Site Prep: Chlorhexidine; Local Anesthetic: None; Insertion attempts: 1; Ultrasound-guided Placement?: No; Patient Tolerance: Tolerated well; Removal Date: 12/14/17; Removal Time: 1320; Removal Reason: Patient Discharged 12/14/17 0740 by Deepali Farnco RN 12/14/17 1320 by Deepali Franco RN ETT Placement Date: 11/27 07/14; Placement Time: 0828; Placed Outside of This Facility?:No; Mask Ventilate: Prior to intubation, Easy; Size (mm) : 8; Endotracheal: Oral, Stylet used; Blade Type: (Glidescope 3); Placement Method: Cricoid pressure, Video Laryngoscope (see comments) (Glidescope 3); View Grade: 2; Viewable Anatomy: Epiglottis, Arytenoid, Vocal cords; Insertion Attempts: 1; Placement Verified By: Capnography, Auscultation, Chest Rise; Placed By: MICHELLE; Extubation Assessment: Suctioned, Alert, Tolerated well, Patient spontaneously breathing, Atraumatic, Able to swallow; Removal Date: 12/14/17; Removal Time: 0915 12/14/17 0828 by Ankita Toro CRNA 12/14/17 0915 by Ankita Toro CRNA Surgical/Incision 12/14/17; 0850; Surg ical Wound; Throat; none; 12/16/17; 1419 12/14/17 0850 by Esperanza Grant RN 12/16/17 1419 by Automatic Discharge Provider ETT Placement Date: 11/27 07/14; Placement Time: 916; Endotracheal: Nasopharyngeal airway; Removal Date: 12/14/17; Removal Time: 93712/14/17 0917 by Ankita Toro, ORTHOTIC/PROSTHETIC CLINICIAN 12/14/17 09 by Whit Mcgowan RN documented in this encounter Social History Tobacco Use Types Packs/Day Years Used Date Smoking Tobacco: Never Smokeless Tobacco: Never Alcohol Use Standard Drinks/Week Comments Yes 0 (1 standard drink = 0.6 oz pur e alcohol) sociallly Sex and Gender Information Value Date Recorded Sex Assigned at Not on file Legal Sex Male 10:18 AM ROPER OPERATOR Gender Identity Not on file Sexual Orientation Not on file documented as of this encounter OR Notes * Anesthesia Postprocedure Evaluation - Mamta Can MD - 12/14/2017 12:47 PM CST Anesthesia Post-op Note Sangita Carrizales Procedure(s): TONSILLECTOMY AND ADENOIDECTOMY BILATERAL (Bilateral Throat) Anesthesia type: general Vitals: 12/14/17 1200 BP: 125/80 Pulse: 100 Resp: Temp: SpO2: 90% Patient Location: PACU Level of Consciousness: awake, alert and oriented Pain Management: adequate analgesia Airway Patency: patent Respiratory Status: spontaneous ventilation, unassisted and nonlabored ventilation (Patient's O2 sats dropping to low 80's when asleep with short periods of apnea and come up into 90's on their own. D/w Dr. Cummings and he will followup with him and order him sleep study.) Cardiovascular Status: hemodynamically stable Post-Op Nausea: none Postoperative Hydration: euvolemic Complications: no anesthesia complication Comments: Patient evaluated prior to discharge from PACU. R OPERATOR * Anesthesia Preprocedure Evaluation - Mamta Can MD - 12/14/2017 7:10 AM CST Anesthesia ROS/MED History Reviewed: Patient summary , Family history anesthesia, Anesthesia history , Medications , Unchecked boxes arenot applicable Pre-Anesthetic State: alert, awake and responds appropriately no history of anesthetic complications Pulmonary neg pulmonary ROS (-) recent URI, smoker Cardiovascular neg cardio ROS Exercise tolerance:good Neuro/Psych neg neuro/psych ROS GI/Hepatic/Renal neg GI/hepatic/renal ROS (-) GERD Endo/Other (+) obese, (Morbid) GENERAL COMMENTS Past Surgical History: No date: TOOTH EXTRACTION Past Medical History: No date: History of being tatooed Comment: last one in dec- states almost healed-patient states it will be healed at time of surgery No date: Obesity (BMI 30-39.9) No date: Sinusitis Physical Evaluation Airway Mallampati: III TM Distance: >3 FB Neck ROM: limited extension Dental No notable dental history Pulmonary Breath sounds clear to auscultation Cardiovascular Rhythm: regular Rate: normal Other findings: Height 6' 1 (1.854 m), weight 136.1 kg (300 lb). No results for input(s): WBC, RBC, HGB, HCT, PLT, NA, K, CL, CO2, AGAP, BUN, CR, BUNCREATININ, GFRNON, GFR, GLU, CA in the last 72 hours. Anesthesia Plan ASA 2 Intravenous Induction Anesthesia type: general GETA Informed Consent Anesthetic plan and risks discussed with patient of whom consent was obtained. . R OPERATOR R OPERATOR R OPERATOR documented in this encounter Plan of Treatment Upcoming Encounters Date Type Department Care Team (Late st Contact Info) Description 05/22/2025 3:20 PM CDT Office Visit [facility] Family & Internal Medicine - [address] [address] Marilyn Stevens MD [address] [place] [address]. [address] [place] [address] documented as of this encounter Visit Diagnoses Not on filedocumented in this encounter Administered Medications Inactive Administered Medications - up to 3 most recent administrations Medication Order MAR Action Action Date Dose Rate Site dexamethasone (DECADRON) injection PRN, Starting on Lanie 12/14/17 at 0840, Until Lanie 12/14/17 at 0928, Anesthesia Intra-Op Given 12/14/2017 8:40 AM ROPER OPERATOR 10 mg fentaNYL (SUBLIMAZE) injection Intravenous, PRN, Severe pain (Scale 8 - 10), Starting on Lanie 12/14/17 at 0825, Until Lanie 12/14/17 at 0928, Anesthesia Intra-Op Given 12/14/2017 8:38 AM ROPER OPERATOR 50 mcg Given 12/14/2017 8:25 AM ROPER OPERATOR 50 mcg lactated ringers infusion at 10 mL/hr, Intravenous, Continuous, Starting on Lanie 12/14/17 at 0845, Until 12/16/17 at 1419, Not to be given to patients with end stage renal disease or dialysis. Infuse at TKO rate, Pre-Op New Bag 12/14/2017 8:19 AM ROPER OPERATOR lidocaine (PF) (XYLOCAINE) 2 % injection Intravenous, PRN, Starting on Lanie 12/14/17 at 0825, Until Lanie 12/14/17 at 0928, Anesthesia Intra-Op Given 12/14/2017 8:25 AM ROPER OPERATOR 100 mg midazolam (VERSED) injection Intravenous, PRN, Sedation, Starting on Lanie 12/14/17 at 0816, Until Lanie 12/14/17 at 0928, Anesthesia Intra-Op Given 12/14/2017 8:16 AM ROPER OPERATOR 2 mg ondansetron (ZOFRAN) injection Intravenous, PRN, Nausea, Vomiting, Starting on Lanie 12/14/17 at 0847, Until Lanie 12/14/17 at 0928, Anesthesia Intra-Op Given 12/14/2017 8:47 AM ROPER OPERATOR 4 mg propofol (DIPRIVAN) IV bolus Intravenous, PRN, Starting on Lanie 12/14/17 at 0825, Until Lanie 12/14/17 at 0928, Anesthesia Intra-Op Given 12/14/2017 8:38 AM ROPER OPERATOR 100 mg Given 12/14/2017 8:25 AM ROPER OPERATOR 200 mg rocuronium (ZEMURON) injection PRN, Starting on Lanie 12/14/17 at 0838, Until Lanie 12/14/17 at 0928, Anesthesia Intra-Op Given 12/14/2017 8:38 AM ROPER OPERATOR 30 mg succinylcholine (ANECTINE) injection Intravenous, PRN, Starting on Lanie 12/14/17 at 0825, Until Lanie 12/14/17 at 0928, Anesthesia Intra-Op Given 12/14/2017 8:25 AM ROPER OPERATOR 160 mg sugammadex (BRIDION) injection PRN, Starting on Lanie 12/14/17 at 0858, Until Lanie 12/14/17 at 0928, Anesthesia Intra-Op Given 12/14/2017 8:58 AM ROPER OPERATOR 480 mg documented in this encounter
--- OUTSIDE RECORDS SUMMARY | 2024-11-23 03:49 | XMS_ITS | Clinical Summary ---
Author Organization [facility] Address [address] [place] [address]. [place], [place] [address] [place] [address] Care Team Providers Care Size Cutter Name Role Phone Unavailable Primary Care Provider Unavailabl e Allergies No known active allergies Medications hydrocodone-acet aminophen 7.5-325 MG/15ML Solution solution Take 15 mLs by mouth every 4 (four) hours as needed for Pain. 500 mL 12/14/2017 Active Family History Medical History Relation Comments Early Hearing Loss Daughter Cancer Maternal Aunt breast Cancer Maternal Grandmother breast Heart Disease Maternal Grandmother Cancer Mother breast Heart Disease Mother mi Hypertension Mother Stroke Mother Thyroid Mother Relation Status Comments Daughter Alive Maternal Aunt Maternal Grandmother Mother Alive Social History Tobacco Use Types Packs/Day Years Used Date Smoking Tobacco: Never Smokeless Tobacco: Never Alcohol Use Standard Drinks/Week Comments Yes 0 (1 standard drink = 0.6 oz pur e alcohol) sociallly Sex and Gender Information Value Date Recorded Sex Assigned at Not on file Legal Sex Male 10:18 AM FAMILY LAW LEGAL ASSISTANT Gender Identity Not on file Sexual Orientation Not on file Last Filed Vital Signs Vital Sign Reading Time Taken Comments Blood Pressure 116/80 12/17/2017 7:45 AM FAMILY LAW LEGAL ASSISTANT Pulse 101 12/17/2017 7:45 AM FAMILY LAW LEGAL ASSISTANT Temperature 36.7 ??C (98 ??F) 12/17/2017 6:15 AM FAMILY LAW LEGAL ASSISTANT Respiratory Rate 18 12/17/2017 6:15 AM FAMILY LAW LEGAL ASSISTANT Oxygen Saturation 96% 12/17/2017 7:45 AM FAMILY LAW LEGAL ASSISTANT Inhaled Oxygen Concentration - - Weight 161.6 kg (356 lb 4.2 oz) 12/17/2017 6:15 AM FAMILY LAW LEGAL ASSISTANT Height 185.4 cm (6' 1 ) 12/17/2017 6:15 AM FAMILY LAW LEGAL ASSISTANT Body Mass Index 47 12/17/2017 6:15 AM FAMILY LAW LEGAL ASSISTANT Plan of Treatment Upcoming Encounters Date Type Department Care Team (Late st Contact Info) Description 05/22/2025 3:20 PM CDT Office Visit [facility] Family & Internal Medicine [facility] [address] [place] [address] [place] [address] [facility]. [address] [place] [address] Health Maintenance Due Date Last Done Comments Annual Physical 1992 Hepatitis C 2007 DTaP, Tdap and Td Vaccines ( 1 - Tdap) 2008 Hepatitis B Vaccines (1 of 3 - 19+ 3-dose series) 2008 COVID-19 Vaccine (2023-2 5 season) 2024 Influenza Adult (#1) 2024 HPV Vaccines Aged Out No longer eligi ble based on patient's age to complete this topic Meningococcal Vaccine Aged Out No karie laya eligible based on patient's age to complete this topic Pneumococcal Vaccine: Pediat rics (0 to 5 Years) and At-Risk Patients (6 to 64 Years) Aged Out No longer eligible b ased on patient's age to complete this topic RSV Immunizations Under 20 Months Aged Out No longer eligible based on patient's age to complete this topic Insurance [facility]
--- OUTSIDE RECORDS SUMMARY | 2024-11-23 03:49 | XMS_ITS | Patient Health Summary ---
Author Organization [facility] Address [address] [place] [address] Care Team Providers Care Chef Kitchen Manager Name Role Phone Unavailable Primary Care Provider Unavailabl e Note from [facility],non-owned Affiliates and Associated Physician Practices is amultiple site organization consisting of ambulatory clinics and hospital sitesin [place], [place], [place] and [place]. This disclosure is being madepursuant to the Care Everywhere program and may not contain all information available regarding this patient. Last updated 18.[facility] Allergies No known active allergies Medications * Be aware that medications may not be up to date on this document. Alwaysverify current medications with the patient. * predniSONE (DELTASONE) 20 MG tablet(Started 12/25/2018) Take 1 tablet by mouth 2 times daily * albuterol HFA (VENTOLIN HFA) 108 (90 BASE) MCG/ACT inhaler(Started 12/25/2018) Inhale 2 puffs by mouth every 6 hours as needed 5 refills remaining Social History Tobacco Use Types Packs/Day Years [...] Comments Blood Pressure 124/80 12/25/2018 4:31 PM CYTOLOGY LABORATORY MANAGER Pulse 88 12/25/2018 4:31 PM CYTOLOGY LABORATORY MANAGER Temperature 36.5 ??C (97.7 ??F) 12/25/2018 4:31 PM CS T Respiratory Rate 20 12/25/2018 4:31 PM CYTOLOGY LABORATORY MANAGER Oxygen Saturation 97% 12/25/2018 4:31 PM CYTOLOGY LABORATORY MANAGER Inhaled Oxygen Concentration - - Weight 140.6 kg (310 lb) 12/25/2018 4:31 PM CYTOLOGY LABORATORY MANAGER Height 185.4 cm (6' 1 ) 12/25/2018 4:31 PM CYTOLOGY LABORATORY MANAGER Body Mass Index 40.9 12/25/2018 4:31 PM CYTOLOGY LABORATORY MANAGER Procedures * STREP A SCREEN - POINT OF CARE (AMB) STL(Performed 12/25/2018) Performed for Strep throat Results * (ABNORMAL) STREP A SCREEN (12/25/2018) Strep A Rapid POCT Positive(A) Negative Strep A Internal Control Present Lot # [id number] Expiration Date 03/26/20 Throat ENTIRE THROAT (SURFACE REGION OF NECK) / Unknown 12/25/2018 Sohan Shay SAP TECHNICAL DEVELOPER-INTAKE ASSESSOR LAB - POINT OF CARE ORDERABLES
--- OUTSIDE RECORDS SUMMARY | 2024-11-23 03:49 | XMS_ITS | Encounter Summary ---
Author Organization [facility] Address [address] [place] [address] Care Team Providers Care Criminalist Technician Name Role Phone Unavailable Primary Care Provider Unavailabl e Reason for Visit * Reason Comments Cough x 2 week Sore Throat Ear Pain mainly right ear Sinusitis Encounter Details Date Type Department Care Team (Late st Contact Info) Description 12/25/2018 4:20 PM FRONT OFFICE COORDINATOR Office Visit [facility] AT [address] [phone] [facility], [facility] Strep throat (Primary Dx); Acute sinusitis, recurrence not specified, unspecified location; Bronchitis Social History Tobacco Use Types Packs/Day Years [...] Comments Blood Pressure 124/80 12/25/2018 4:31 PM FRONT OFFICE COORDINATOR Pulse 88 12/25/2018 4:31 PM FRONT OFFICE COORDINATOR Temperature 36.5 ??C (97.7 ??F) 12/25/2018 4:31 PM CS T Respiratory Rate 20 12/25/2018 4:31 PM FRONT OFFICE COORDINATOR Oxygen Saturation 97% 12/25/2018 4:31 PM FRONT OFFICE COORDINATOR Inhaled Oxygen Concentration - - Weight 140.6 kg (310 lb) 12/25/2018 4:31 PM FRONT OFFICE COORDINATOR Height 185.4 cm (6' 1 ) 12/25/2018 4:31 PM FRONT OFFICE COORDINATOR Body Mass Index 40.9 12/25/2018 4:31 PM FRONT OFFICE COORDINATOR documented in this encounter Patient Instructions * Patient Instructions* Sohan Shay APRN-SHIPPING SUPERVISOR - 12/25/2018 4:49 PM FRONT OFFICE COORDINATOR Images from the original note were not included. Sinusitis WHAT YOU NEED TO KNOW: What is sinusitis? Sinusitis is inflammation or infection of your sinuses. It is most often caused by a virus. Acute sinusitis may last up to 12 weeks. Chronic sinusitis lasts longer than 12 weeks. Recurrent sinusitis means you have 4 or more times in 1 year. What increases my risk for sinusitis? ?? Medical conditions, such as an upper respiratory infection, allergies, asthma, or cystic fibrosis ?? Dental infections or procedures, such as gum infections, tooth decay, or a root canal ?? Smoking ?? Abnormal sinus structure, such as nasal growths, swollen tonsils, or a deviated septum ?? A weak immune system, from diseases such as diabetes or HIV What are the signs and symptoms of sinusitis? ?? Fever ?? Pain, pressure, redness, or swelling around the forehead, cheeks, or eyes ?? Thick yellow or green discharge from your nose ?? Tenderness when you touch your face over your sinuses ?? Dry cough that happens mostly at night or when you lie down ?? Headache and face pain that is worse when you lean forward ?? Tooth pain, or pain when you chew How is sinusitis diagnosed? Your healthcare provider will examine you and ask about your symptoms. He or she will check inside your nose using a nasal speculum. This is a small tool used to open yournostrils. A sample of the mucus from your nose may show what germ is causing your infection. How is sinusitis treated? Your symptoms may go away on their own. Your healthcare provider may recommend watchful waiting for up to 10 days before starting antibiotics. You may need any of the following: ?? Acetaminophen decreases pain and fever. It is available without a doctor's order. Ask how much to take and how often to take it. Follow directions. Read the labels of all other medicines you are using to see if they also contain acetaminophen, or ask your doctor or pharmacist. Acetaminophen can cause liver damage if not taken correctly. Do not use more than 4 grams (4,000 milligrams) total of acetaminophen in one day. ?? NSAIDs , such as ibuprofen, help decrease swelling, pain, and fever. This medicine is available with or without a doctor's order. NSAIDs can cause stomach bleeding or kidney problems in certain people. If you take blood thinner medicine, always ask your healthcare provider if NSAIDs are safe foryou. Always read the medicine label and follow directions. ?? Nasal steroid sprays may help decrease inflammation in your nose and sinuses. ?? Decongestants help reduce swelling and drain mucus in the nose and sinuses. They may help you breathe easier. ?? Antihistamines help dry mucus in the nose and relieve sneezing. ?? Antibiotics help treat or prevent a bacterial infection. How can I manage my symptoms? ?? Rinse your sinuses. Use a sinus rinse device to rinse your nasal passages with a saline (salt water) solution or distilled water. Do not use tap water. This will help thin the mucus in your nose and rinse away pollen and dirt. It will also help reduce swelling so you can breathe normally. Ask your healthcare provider how often to do this. ?? Breathe in steam. Heat a bowl of water until you see steam. Lean over the bowl and make a tent over your head with a large towel. Breathe deeply for about 20 minutes. Be careful not to get too close to the steam or burn yourself. Do this 3 times a day. You can also breathe deeply when you take ahot shower. ?? Sleep with your head elevated. Place an extra pillow under your head before you go to sleep to help your sinuses drain. ?? Drink liquids as directed. Ask your healthcare provider how much liquid to drink each day and which liquids are best for you. Liquids will thin the mucus in your nose and help it drain. Avoid drinks that contain alcohol or caffeine. ?? Do not smoke, and avoid secondhand smoke. Nicotine and other chemicals in cigarettes and cigars can make your symptoms worse. Ask your healthcare provider for information if you currently smoke and need help to quit. E-cigarettes or smokeless tobacco still contain nicotine. Talk to your healthcare provider before you use these products. How can I help prevent the spread of germs that cause sinusitis? Wash your hands often with soap and water. Wash your hands after you use the bathroom, change a child's diaper, or sneeze. Wash your hands before you prepare or eat food. When should I seek immediate care? ?? Your eye and eyelid are red, swollen, and painful. ?? You cannot open your eye. ?? You have vision changes, such as double vision. ?? Your eyeball bulges out or you cannot move your eye. ?? You are more sleepy than normal, or you notice changes in your ability to think, move, or talk. ?? You have a stiff neck, a fever, or a bad headache. ?? You have swelling of your forehead or scalp. When should I contact my healthcare provider? ?? Your symptoms do not improve after 3 days. ?? Your symptoms do not go away after 10 days. ?? You have nausea and are vomiting. ?? Your nose is bleeding. ?? You have questions or concerns about your condition or care. CARE AGREEMENT: You have the right to help plan your care. Learn about your health condition and how it may be treated. Discuss treatment options with your healthcare providers to decide what care you want to receive. You always have the right to refuse treatment. The above information is an health aid only. It is not intended as medical advice for individual conditions or treatments. Talk to your doctor, nurse or pharmacist before following any medical regimen to see if it is safe and effective for you. ?? Copyright [employer] 2018 Information is for End User's use only and may not be sold, redistributed or otherwise used for commercial purposes. All illustrations and images included in CareNotes?? are the copyrighted property of [employer] or [employer] Strep Throat WHAT YOU NEED TO KNOW: What is strep throat? Strep throat is a throat infection caused by bacteria. It is easily spread from person to person. What are the signs and symptoms of strep throat? ?? Sore, red, and swollen throat ?? Fever and headache ?? Upset stomach, abdominal pain, or vomiting ?? White or yellow patches or blisters in the back of your throat ?? Tender, swollen lumps on the sides of your neck or jaw ?? Throat pain when you swallow How is strep throat diagnosed? Your healthcare provider will swab the back of your throat to test for strep bacteria. You may get the results in minutes or the swab may be sent to a lab for further tests. How is strep throat treated? You will need antibiotic medicine to treat your strep throat. You should feel better within 2 to 3 days after you start antibiotics. You may return to work or school 24 hours after you start antibiotics. How can I manage my symptoms? ?? Use lozenges, ice, soft foods, or popsicles to soothe your throat. ?? Drink juice, milk shakes, or soup if your throat is too sore to eat solid food. Drinking liquidscan also help prevent dehydration. ?? Gargle with salt water. Mix ?? teaspoon salt in a 1 cup of warm water and gargle. This may help reduce swelling in your throat. ?? Do not smoke. Nicotine and other chemicals in cigarettes and cigars can cause lung damage and make your symptoms worse. Ask your healthcare provider for information if you currently smoke and needhelp to quit. E-cigarettes or smokeless tobacco still contain nicotine. Talk to your healthcare provider before you use these products. How do I prevent the spread of strep throat? ?? Wash your hands often. Use soap and water. Wash your hands after you use the bathroom, change a child's diapers, or sneeze. Wash your hands before you prepare or eat food. ?? Do not share food or drinks. Replace your toothbrush after you have taken antibiotics for 24 hours. Call 911 for any of the following: ?? You have trouble breathing. When should I seek immediate care? ?? You have new symptoms like a bad headache, stiff neck, chest pain, or vomiting. ?? You are drooling because you cannot swallow your spit. When should I contact my healthcare provider? ?? You have a fever. ?? You have a rash or ear pain. ?? You have green, yellow-brown, or bloody mucus when you cough or blow your nose. ?? You are unable to drink anything. ?? You have questions or concerns about your condition or care. CARE AGREEMENT: You have the right to help plan your care. Learn about your health condition and how it may be treated. Discuss treatment options with your healthcare providers to decide what care you want to receive. You always have the right to refuse treatment. The above information is an health aid only. It is not intended as medical advice for individual conditions or treatments. Talk to your doctor, nurse or pharmacist before following any medical regimen to see if it is safe and effective for you. ?? Copyright [employer] 2018 Information is for End User's use only and may not be sold, redistributed or otherwise used for commercial purposes. All illustrations and images included in CareNotes?? are the copyrighted property of [employer] or [employer] T OFFICE COORDINATOR documented in this encounter Progress Notes * Sohan Shay APRN-CNP - 12/25/2018 4:32 PM CST [facility] Chief Complaint Patient presents with ??? Cough x 2 week ??? Sore Throat ??? Ear Pain mainly right ear ??? Sinusitis SUBJECTIVE: General The history is provided by the patient (28 y/o m). This is a new problem. Episode onset: 2 weeks. The problem occurs constantly. The problem has been gradually worsening. The pain is moderate. Body Location: sinus pressure/pain, cough, sore throat, ear pain Associated symptoms include headaches andshortness of breath. The symptoms are aggravated by coughing (night time increases cough ). Relieved by: dayquil, nyquil, mucinex dm, flonase, claritin amoxicillin left over x 3 The treatment provided mild relief. Past Medical History: Diagnosis Date ??? Asthma childhood only ??? Seasonal allergies ??? Sleep apnea use a C-pap No current outpatient prescriptions on file prior to visit. No current facility-administered medications on file prior to visit. Past Surgical History: Procedure Laterality Date ??? Tonsillectomy and Adenoidectomy Social History Social History ??? Marital status: Single Spouse name: N/A ??? Number of children: N/A ??? Years of education: N/A Occupational History ??? Not on file. Social History Main Topics ??? Smoking status: Never Smoker ??? Smokeless tobacco: Never Used ??? Alcohol use No ??? Drug use: Not on file ??? Sexual activity: Yes Partners: Female Other Topics Concern ??? Not on file Social History Narrative ??? No narrative on file Family History Problem Relation Age of Onset ??? Cancer - Breast Mother ??? Thyroid Disease Mother ??? Asthma Mother ??? Autoimmune Disease Neg Hx ??? Bipolar Disorder Neg Hx ??? Cancer - Colon Neg Hx ??? Cancer - Other Neg Hx ??? Cancer - Ovarian Neg Hx ??? Cancer - Pancreatic Neg Hx ??? Cancer - Prostate Neg Hx ??? Depression Neg Hx ??? Eczema Neg Hx ??? Hypertension Neg Hx ??? Migraine Neg Hx ??? Seizures Neg Hx ? ? Sudd. <30 Neg Hx ??? Osteoporosis Neg Hx ??? Ulcerative Colitis Neg Hx Current Outpatient Prescriptions Medication Sig Dispense Refill ??? albuterol HFA (VENTOLIN HFA) 108 (90 BASE) MCG/ACT inhaler Inhale 2 puffs by mouth every 6 hours as needed 1 Inhaler 5 ??? amoxicillin-clavulanate (AUGMENTIN) 875-125 MG tablet Take 1 tablet by mouth 2 times daily withmorning and evening meal for 10 days 20 tablet 0 ??? predniSONE (DELTASONE) 20 MG tablet Take 1 tablet by mouth 2 times daily 14 tablet 0 No current facility-administered medications for this visit. No Known Allergies REVIEW OF SYSTEMS: Review of Systems Constitutional: Positive for malaise/fatigue. Negative for chills and fever. HENT: Positive for congestion, ear pain, sinus pain and sore throat. Respiratory: Positive for cough, sputum production and shortness of breath. Negative for hemoptysisand wheezing. Cardiovascular: Negative. Gastrointestinal: Negative. Musculoskeletal: Negative. Neurological: Positive for headaches. OBJECTIVE: General appearance: alert, well appearing, and in no distress. BP 124/80 (BP SITE: LEFT ARM, BP POSITION: SITTING, BP CUFF SIZE: 12) Pulse 88 Temp 97.7 ??F (36.5 ??C) (Oral) Resp 20 Ht 1.854 m (6' 1 ) Wt 140.6 kg (310 lb) SpO2 97% BMI 40.9 kg/m2 Physical Exam Constitutional: He is well-developed, well-nourished, and in no distress. HENT: Nares and posterior buccal mucosa erythema, edema, Tender sinuses with palpation Neck: Normal range of motion. Neck supple. Cardiovascular: Normal rate and regular rhythm. Pulmonary/Chest: Effort normal and breath sounds normal. ASSESSMENT: Office Visit on 12/25/18 STREP A SCREEN Result Value Ref Range Strep A Rapid POCT Positive (Abnormal) Negative Strep A Internal Control Present Lot # [id number] Expiration Date 03/26/20 Encounter Diagnoses Name Primary? Strep throat Yes ??? Acute sinusitis, recurrence not specified, unspecified location ??? Bronchitis PLAN: Orders Placed This Encounter ??? STREP A SCREEN ??? predniSONE (DELTASONE) 20 MG tablet Sig: Take 1 tablet by mouth 2 times daily Dispense: 14 tablet Refill: 0 ??? amoxicillin-clavulanate (AUGMENTIN) 875-125 MG tablet Sig: Take 1 tablet by mouth 2 times daily with morning and evening meal for 10 days Dispense: 20 tablet Refill: 0 ??? albuterol HFA (VENTOLIN HFA) 108 (90 BASE) MCG/ACT inhaler Sig: Inhale 2 puffs by mouth every 6 hours as needed Dispense: 1 Inhaler Refill: 5 Handouts given T OFFICE COORDINATOR documented in this encounter Plan of Treatment Not on file documented as of this encounter Procedures Procedure Name Priority Date/Time Associated Diagnosis Comments STREP A SCREEN - POINT OF CARE (AMB) STL Routine 12/25/2018 Strep throat documented in this encounter Results * (ABNORMAL) STREP A SCREEN (12/25/2018) Strep A Rapid POCT Positive(A) Negative Strep A Internal Control Present Lot # [id number] Expiration Date 03/26/20 Throat ENTIRE THROAT (SURFACE REGION OF NECK) / Unknown 12/25/2018 Sohan OCONNELL LAB - POINT OF CARE ORDERABLES documented in this encounter Visit Diagnoses Diagnosis Strep throat- Primary Streptococcal sore throat Acute sinusitis, recurrence not specified, unspecified location Bronchitis Bronchitis, not specified as acute or chronic documented in this encounter
--- OUTSIDE RECORDS SUMMARY | 2024-11-23 03:49 | XMS_ITS | Encounter Summary ---
Author Organization [facility] Address [address] [place] [address] Care Team Providers Care Utilities Operator Name Role Phone Unavailable Primary Care Provider Unavailabl e Reason for Visit * Reason Onset Date Comments Follow-up 12/27/2018 Encounter Details Date Type Department Care Team ([facility] st Contact Info) Description 12/27/2018 Telephone [facility] [address] [phone] Eva Gant APRN-CNP [address] [place], [place] Follow-up Social History Tobacco Use Types Packs/Day Years Used Date Smoking Tobacco: Never Smokeless Tobacco: Never Alcohol Use Standard Drinks/Week Comments No 0 (1 standard drink = 0.6 oz pur e alcohol) Sex and Gender Information Value Date Recorded Sex Assigned at Not on file Gender Identity Not on file Sexual Orientation Not on file documented as of this encounter Miscellaneous Notes * Telephone Encounter - Eva Gant APRN-CNP - 12/27/2018 10:12 AM FRAME TRIMMER Spoke with patient who states he is feeling better. No questions or concerns. E TRIMMER documented in this encounter Plan of Treatment Not on file documented as of this encounter Visit Diagnoses Not on filedocumented in this encounter
--- OUTSIDE RECORDS SUMMARY | 2024-11-23 03:49 | XMS_ITS | Encounter Summary ---
Author Organization [facility] Address [address] [place] [address]. [place] [address] [place] [address] Care Team Providers Care Malted Milk Masher Name Role Phone Unavailable Primary Care Provider Unavailabl e Reason for Visit * Reason Onset Date Comments Appointment Request 08/20/2024 Encounter Details Date Type Department Care Team (Late st Contact Info) Description 08/20/2024 Telephone [facility] Family [facility] Internal Medicine [address] [phone] Non-Staff, Provider Appointment Request Social History Tobacco Use Types Packs/Day Years Used Date Smoking Tobacco: Never Smokeless Tobacco: Never Alcohol Use Standard Drinks/Week Comments Yes 0 (1 standard drink = 0.6 oz pur e alcohol) sociallly Sex and Gender Information Value Date Recorded Sex Assigned at Not on file Legal Sex Male 10:18 AM MESSENGER FLOORPERSON Gender Identity Not on file Sexual Orientation Not on file documented as of this encounter Progress Notes * Jonelle Shaffer RN - 08/22/2024 9:58 AM CDT Noted. * Dariela Pearce - 08/22/2024 8:36 AM CDT Appt roddy'd on 05/22 * Marilyn Stevens MD - 08/21/2024 9:18 PM CDT Yes. Okay to schedule 40-minute establish care when available * Patti Posey MA - 08/21/2024 2:15 PM CDT Advise? * Sheeba Salgado LPN - 08/20/2024 1:13 PM CDT Pt called states his father Charles Middleton is a pt of Dr. Stevens and she said that she would take him asa new pt Will this be ok ? [phone] documented in this encounter Plan of Treatment Upcoming Encounters Date Type Department Care Team (Late st Contact Info) Description 05/22/2025 3:20 PM CDT Office Visit [facility] Family [facility] Internal Medicine - [address] [phone] Mar[place]n Stevens [place] [id number] [place] [address]. [address] [place] [address] documented as of this encounter Visit Diagnoses Not on filedocumented in this encounter
--- OUTSIDE RECORDS SUMMARY | 2024-11-23 03:49 | XMS_ITS | Referral Summary ---
Author Organization [facility] Address [address] [place] [address] Care Team Providers Care Nursery Manager Name Role Phone Unavailable Primary Care Provider Unavailabl e Source Comments [facility],non-owned Affiliates and Associated Physician Practices is amultiple site organization consisting of ambulatory clinics and hospital sitesin [place], [place], [place] and [place]. This disclosure is being madepursuant to the Care Everywhere program and may not contain all information available regarding this patient. Last updated 18.[facility] [employer] Allergies No known active allergies Medications * [...] as needed 1 Inhaler 5 12/25/2018 Active Social History Tobacco Use Types Packs/Day Years [...] Comments Blood Pressure 124/80 12/25/2018 4:31 PM INSOLE LIP TURNER Pulse 88 12/25/2018 4:31 PM INSOLE LIP TURNER Temperature 36.5 ??C (97.7 ??F) 12/25/2018 4:31 PM CS T Respiratory Rate 20 12/25/2018 4:31 PM INSOLE LIP TURNER Oxygen Saturation 97% 12/25/2018 4:31 PM INSOLE LIP TURNER Inhaled Oxygen Concentration - - Weight 140.6 kg (310 lb) 12/25/2018 4:31 PM INSOLE LIP TURNER Height 185.4 cm (6' 1 ) 12/25/2018 4:31 PM INSOLE LIP TURNER Body Mass Index 40.9 12/25/2018 4:31 PM INSOLE LIP TURNER Plan of Treatment Not on file
== END 2024-11-16 07:25 | disposition home or self-care (01) ==
LOC: ANHLAB 07:25
PROVIDERS: PCP Family Medicine; Visit Provider Family Medicine
DX: Z00.00 Encounter for general adult medical examination without abnormal findings (principal); D64.9 Anemia, unspecified; J45.909 Unspecified asthma, uncomplicated; E66.9 Obesity, unspecified; T78.40XA Allergy, unspecified, initial encounter; X58.XXXA Exposure to other specified factors, initial encounter
CPT/HCPCS: 36415; 80053; 85025

== ENCOUNTER 2025-06-07 07:42 | Outpatient (CLI) | payer BC, SELFPAY ==
--- OUTSIDE RECORDS SUMMARY | 2025-06-07 07:45 | XMS_ITS | Clinical Summary ---
Author Organization [facility] Address [address] [place] [id number] Care Team Providers Care Health And Nutrition Specialist Name Role Phone Marilyn Stevens MD Primary Care Provider [phone] Allergies No known active allergies Medications hydrocodone-acet [...] on file Legal Sex Male 10:18 AM DAIRY GRAZER Gender Identity Not on file Sexual Orientation Not on file Last Filed Vital Signs Vital Sign Reading Time Taken Comments Blood Pressure 116/80 12/17/2017 7:45 AM DAIRY GRAZER Pulse 101 12/17/2017 7:45 AM DAIRY GRAZER Temperature 36.7 C (98 F) 12/17/2017 6:15 AM DAIRY GRAZER Respiratory Rate 18 12/17/2017 6:15 AM DAIRY GRAZER Oxygen Saturation 96% 12/17/2017 7:45 AM DAIRY GRAZER Inhaled Oxygen Concentration - - Weight 161.6 kg (356 lb 4.2 oz) 12/17/2017 6:15 AM DAIRY GRAZER Height 185.4 cm (6' 1) 12/17/2017 6:15 AM DAIRY GRAZER Body Mass Index 47 12/17/2017 6:15 AM DAIRY GRAZER Plan of Treatment Upcoming Encounters Date Type Department Care Team (Late st Contact Info) Description 10/27/2025 8:00 AM DAIRY GRAZER Office Visit [facility] Family & Internal Medicine [facility] [address] [place] [address] [place] [address] [facility] [address] [place] [address] Health Maintenance Due Date Last Done Comments Annual Physical 1992 Hepatitis C 2007 DTaP, Tdap and Td Vaccines ( 1 - Tdap) 2008 Hepatitis B Vaccines (1 of 3 - 19+ 3-dose series) 2008 COVID-19 Vaccine ( - 2023-2 5 season) 2024 PHQ-2 (Physician Kenaitze) 11/27/2024 HPV Vaccines Aged Out No longer eligi ble based on patient's age to complete this topic Meningococcal B Vaccine Aged Out No l onger eligible based on patient's age to complete this topic Meningococcal Vaccine Aged Out No karie laya eligible based on patient's age to complete this topic Pneumococcal Vaccine: Pediat rics (0 to 5 Years) and At-Risk Patients (6 to 49 Years) Aged Out No longer eligible b ased on patient's age to complete this topic RSV Immunizations Under 20 Months Aged Out No longer eligible based on patient's age to complete this topic Insurance [facility] Care Teams Health And Nutrition Specialist Relationship Specialty [place] [id number] [place] [address] PCP - General FAMILY PRACTICE 05/22/25
--- OUTSIDE RECORDS SUMMARY | 2025-06-07 07:45 | XMS_ITS | Clinical Summary ---
Author Organization [facility] [employer] Address [address] [place] [address] Care Team Providers Care Lining Feller Name Role Phone Unavailable Primary Care Provider Unavailabl e Source Comments [facility] [employer],non-owned Affiliates and Associated Physician Practices is amultiple site organization consisting of ambulatory clinics and hospital sitesin [place], [place], [place] and [place]. This disclosure is being madepursuant to the Care Everywhere program and may not contain all information available regarding this patient. Last updated 18.[facility] [employer] Allergies No known active allergies Medications * Be aware that medications may not be up to date on this document. Alwaysverify current medications with the patient. predniSONE (DELTASONE) 20 MG tabletIndication s:Acute sinusitis, recurrence not specified, unspecified location Take 1 tablet by mouth 2 times daily 14 tablet 12/25/2018 Active albuterol HFA (VENTOLIN HFA) 108 (90 BASE) MCG/ACT inhalerIndicatio ns:Bronchitis Inhale 2 puffs by mouth every 6 [...] at Not on file Legal Sex Male 4:16 PM FIRE ADJUSTER Gender Identity Not on file Sexual Orientation Not on file Last Filed Vital Signs Vital Sign Reading Time Taken Comments Blood Pressure 124/80 12/25/2018 4:31 PM FIRE ADJUSTER Pulse 88 12/25/2018 4:31 PM FIRE ADJUSTER Temperature 36.5 C (97.7 F) 12/25/2018 4:31 PM FIRE ADJUSTER Respiratory Rate 20 12/25/2018 4:31 PM FIRE ADJUSTER Oxygen Saturation 97% 12/25/2018 4:31 PM FIRE ADJUSTER Inhaled Oxygen Concentration - - Weight 140.6 kg (310 lb) 12/25/2018 4:31 PM FIRE ADJUSTER Height 185.4 cm (6' 1) 12/25/2018 4:31 PM FIRE ADJUSTER Body Mass Index 40.9 12/25/2018 4:31 PM FIRE ADJUSTER Plan of Treatment Health Maintenance Due Date Last Done Comments HIV SCREENING 2004 HEPATITIS C SCREENING 11/08/2007 DTAP/TDAP/TD VACCINES (1 - Tdap) 2008 HEPATITIS B VACCINE (1 of 3 - 19+ 3-dose series) 2008 COVID-19 VACCINE (1 - 2023-2 5 season) 2024 DEPRESSION SCREENING 11/27/2024 INFLUENZA VACCINE (#1) 2025 ZOSTER VACCINE (1 of 2) 2039 HIB VACCINE Aged Out No longer eligi ble based on patient's age to complete this topic HPV VACCINE Aged Out No longer eligi ble based on patient's age to complete this topic MENINGOCOCCAL (Group B) VACC INE SHARED DECISION-MAKING Aged Out No longer eligibl e based on patient's age to complete this topic MENINGOCOCCAL GROUPS A/C/Y/W VACCINE Aged Out No longer eligible b ased on patient's age to complete this topic PNEUMOCOCCAL VACCINE Aged Out No long er eligible based on patient's age to complete this topic Insurance [employer]
[2025-06-07 08:00] LABS: Hematocrit 40.8 % (42.0-52.0); Hemoglobin 13.8 g/dL (14.0-18.0); Mean Corpuscular HGB Conc 33.8 g/dl (32-36); Mean Corpuscular Hemoglobin 32.1 pg (26-34); Mean Corpuscular Volume 94.9 fl (80-100); Platelet Count Result 188 k/mm3 (150-375); Red Blood Count 4.30 M/mm3 (4.6-6.20); White Blood Count 6.0 K/mm3 (4.5-10.0)
[2025-06-07 08:23] LABS: Alanine Aminotransferase 25 U/L (6-50); Albumin Level 4.4 g/dL (3.5-5.1); Alkaline Phosphatase 59 U/L (38-126); Anion Gap 9 mmol/L (4-12); Aspartate Amino Transferase 32 U/L (17-59); Bilirubin,Total 0.4 mg/dL (0.2-1.3); Blood Urea Nitrogen 11 mg/dL (9-20); Calcium 9.5 mg/dL (8.4-10.2); Carbon Dioxide 23 mmol/L (22-30); Chloride 107 mmol/L (98-107); Cholesterol 191 mg/dL (0-200); Estimated Glomerular Filt Rate > 60; Glucose 106 mg/dL (65-110); HDL Direct 43 mg/dL; Potassium 4.0 mmol/L (3.4-5.0); Sodium 139 mmol/L (137-145); Total Protein 7.6 g/dL (6.3-8.2); Triglycerides 122 mg/dL (<150)
== END 2025-06-07 07:43 | disposition home or self-care (01) ==
LOC: ANHLAB 07:44
PROVIDERS: PCP Family Medicine; Visit Provider Family Medicine
DX: J45.909 Unspecified asthma, uncomplicated (principal); E66.9 Obesity, unspecified; D64.9 Anemia, unspecified
CPT/HCPCS: 36415; 80053; 80061; 85027

== ENCOUNTER 2025-07-15 08:06 | Outpatient (CLI) | payer BC, SELFPAY ==
--- NOTE | ~2025-07-15 | XR_ITS ---
EXAM/ PROCEDURE: XR wrist LT 2V - 07/15/2025 8:15 CDT HISTORY: 34 years old Male with S69.90XA - Unspecified injury of unspecified wrist, hand ... COMPARISON: None available TECHNIQUE: Three view(s) FINDINGS/ IMPRESSION: There are no fractures or dislocations.Joint spaces are within normal limits. Reviewed, dictated and finalized at location A.
--- NOTE | ~2025-07-15 | XR_ITS ---
EXAM/ PROCEDURE: XR hand LT 2V - 07/15/2025 8:15 CDT HISTORY: 34 years old Male with S69.90XA - Unspecified injury of unspecified wrist, hand ... COMPARISON: None available TECHNIQUE: Three view(s) FINDINGS/ IMPRESSION: There are no fractures or dislocations.Joint spaces are within normal limits. Reviewed, dictated and finalized at location A.
--- OUTSIDE RECORDS SUMMARY | 2025-07-15 08:24 | XMS_ITS | Clinical Summary ---
Author Organization [facility] [employer] Address [address] [facility] [place] [address] Care Team Providers Care Plumbing And Heating Contractor Name Role Phone Unavailable Primary Care Provider Unavailabl e Source Comments [facility] [employer],non-owned Affiliates and Associated Physician Practices is amultiple site organization consisting of ambulatory clinics and hospital sitesin [place], [place], [place] and [place]. This disclosure is being madepursuant to the Care Everywhere program and may not contain all information available regarding this patient. 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 PHYSICIAN Gender Identity Not on file Sexual Orientation Not on file Last Filed Vital Signs Vital Sign Reading Time Taken Comments Blood Pressure 124/80 12/25/2018 4:31 PM HOSPICE PHYSICIAN Pulse 88 12/25/2018 4:31 PM HOSPICE PHYSICIAN Temperature 36.5 C (97.7 F) 12/25/2018 4:31 PM HOSPICE PHYSICIAN Respiratory Rate 20 12/25/2018 4:31 PM HOSPICE PHYSICIAN Oxygen Saturation 97% 12/25/2018 4:31 PM HOSPICE PHYSICIAN Inhaled Oxygen Concentration - - Weight 140.6 kg (310 lb) 12/25/2018 4:31 PM HOSPICE PHYSICIAN Height 185.4 cm (6' 1) 12/25/2018 4:31 PM HOSPICE PHYSICIAN Body Mass Index 40.9 12/25/2018 4:31 PM HOSPICE PHYSICIAN Plan of Treatment Health Maintenance Due Date Last Done Comments HIV SCREENING 2004 HEPATITIS C SCREENING 11/08/2007 DTAP/TDAP/TD VACCINES (1 - Tdap) 2008 HEPATITIS B VACCINE (1 of 3 - 19+ 3-dose series) 2008 HPV VACCINE (1 - 3-dose SCDM series) 2016 COVID-19 VACCINE (1 - 2023-2 5 season) [...]
--- OUTSIDE RECORDS SUMMARY | 2025-07-15 08:24 | XMS_ITS | Clinical Summary ---
Author Organization [facility] Address [address] [place] [address] Care Team Providers Care Stockroom Supervisor Name Role Phone Marilyn Stevens MD Primary Care Provider [phone] Allergies No known active allergies Medications hydrocodone-acet [...] on file Legal Sex Male 10:18 AM SMALL PACKAGE AND BUNDLE SORTER CLERK Gender Identity Not on file Sexual Orientation Not on file Last Filed Vital Signs Vital Sign Reading Time Taken Comments Blood Pressure 116/80 12/17/2017 7:45 AM SMALL PACKAGE AND BUNDLE SORTER CLERK Pulse 101 12/17/2017 7:45 AM SMALL PACKAGE AND BUNDLE SORTER CLERK Temperature 36.7 C (98 F) 12/17/2017 6:15 AM SMALL PACKAGE AND BUNDLE SORTER CLERK Respiratory Rate 18 12/17/2017 6:15 AM SMALL PACKAGE AND BUNDLE SORTER CLERK Oxygen Saturation 96% 12/17/2017 7:45 AM SMALL PACKAGE AND BUNDLE SORTER CLERK Inhaled Oxygen Concentration - - Weight 161.6 kg (356 lb 4.2 oz) 12/17/2017 6:15 AM SMALL PACKAGE AND BUNDLE SORTER CLERK Height 185.4 cm (6' 1) 12/17/2017 6:15 AM SMALL PACKAGE AND BUNDLE SORTER CLERK Body Mass Index 47 12/17/2017 6:15 AM SMALL PACKAGE AND BUNDLE SORTER CLERK Plan of Treatment Upcoming Encounters Date Type Department Care Team (Late st Contact Info) Description 10/27/2025 8:00 AM SMALL PACKAGE AND BUNDLE SORTER CLERK Office Visit [facility] Family & Internal Medicine [facility] [address] [place] [address] [place] [address] [facility] [address] [place] [id number] Health Maintenance Due Date Last Done Comments Annual Physical 1992 Hepatitis C 2007 DTaP, Tdap and Td Vaccines ( 1 - Tdap) 2008 Hepatitis B Vaccines (1 of 3 - 19+ 3-dose series) 2008 HPV Vaccines (1 - 3-dose SCD M series) 2016 COVID-19 Vaccine ( - 2023-2 5 season) 2024 PHQ-2 (Physician [place]) 11/27/2024 Meningococcal B Vaccine Aged Out No l [...] patient's age to complete this topic Insurance [facility] Care Teams Stockroom Supervisor Relationship Specialty Start [place] [id number] [place] [address] PCP - General FAMILY PRACTICE 05/22/25
== END 2025-07-15 08:07 | disposition home or self-care (01) ==
PROVIDERS: PCP Family Medicine; Visit Provider Nurse Practitioner Family
DX: S69.90XA Unspecified injury of unspecified wrist, hand and finger(s), initial encounter (principal); X58.XXXA Exposure to other specified factors, initial encounter
CPT/HCPCS: 73100; 73120